=== PATIENT | male | born 1990 | race Caucasian/White ===

== ENCOUNTER 2021-08-17 01:47 | Emergency (ER) | payer SELFPAY ==
[~2021-08-17] VITALS: Ht 170.2 cm; Wt 68.0 kg
[2021-08-17] MEDS ORDERED: ACETAMINOPHEN 325MG TABLET PO ONE (02:30)
[2021-08-17] MEDS ORDERED: TETANUS, DIPHTHERIA, PERTUSSIS VAC/PF 0.5ML (>10YR OLD) IM ONE (02:30)
[2021-08-17] MEDS ORDERED: BACITRACIN ZINC OINT UDPKT TOP ONE (02:30)
[2021-08-17] MEDS ORDERED: AMOX-424 MT (03:10)
[2021-08-17] MEDS ORDERED: BO1 TP (03:10)
[2021-08-17 03:30] VITALS: BP 138/88
== END 2021-08-17 04:09 ==
LOC: ER 01:47
DX: S71.052A Open bite, left hip, initial encounter (principal); S61.552A Open bite of left wrist, initial encounter; W54.0XXA Bitten by dog, initial encounter; Y93.89 Activity, other specified; Y92.89 Other specified places as the place of occurrence of the external cause; Y99.8 Other external cause status
CPT/HCPCS: 12001; 73110; 73502; 90471; 90715; 99284; A4217